=== PATIENT | female | born 1975 | race Caucasian/White ===

== ENCOUNTER 2017-06-15 21:39 | Emergency (ER) | payer OTHER ==
[~2017-06-15] VITALS: Ht 165.1 cm; Wt 68.0 kg
[~2017-06-15 21:39] MED LIST: ATIVAN0.5 MG; AZITHROMYCIN 2250 MG PO; BACTRIM 400-801 EACH; BACTRIM DS TAB1 EACH PO; BACTROBAN15 GM TP; BUTALB-APAP-CA1 EACH PO; CIPRO250 M1 PO; CIPRO500 M1 PO; CIPRO500 MG PO; CIPROFLOXACIN500 M1 PO; CIPROFLOXACIN500 M3 PO; CITALOPRAM; DEPAKOTE500 MG PO; DIFLUCAN150 MG PO; DIFLUCAN50 MG; DOXYCYCLINE 10100 MG PO; FAMCYCLOVIR 50500 M1 PO; FLAGYL500 M1 PO; FLAGYL500 MG PO; FLEXERIL PO; FLOMAX0.4 MG PO; HYDROCODON-ACE1 EACH PO; HYDROCODONE-AP1 EAC6 PO; IBUPROFEN 800800 M1 PO; IBUPROFEN 800800 MG PO; INDOMETHACIN 2525 MG PO; KEFLEX500 MG PO; MACROBID 100 M100 M2 PO; MEDROLDOSEPACK PO; METROGEL-VAGINA70 GM VG; MONISTAT 745 GM VG; Magic Mouthwash PO; NAPROSYN500 MG PO; NOHOMEMEDICATIONS; NORCO 5-325 TA1 EACH PO; ONDANSETRON HCL4 M2 PO; PHENAZOPYRIDIN200 M2 PO; PROVERA10 MG PO; PYRIDIUM200 M1 PO; PYRIDIUM200 MG PO; REGLAN 10 MG TA10 MG PO; SEE COMMENTS; SILVADENE20 GM TP; TORADOL 10 MG T10 MG PO; TRAMADOL 50 MG50 MG PO; ULTRAM 50MG TAB50 MG PO; ZOFRAN4 MG PO
[2017-06-15 22:14] LABS: INFLUENZA A ANTIGEN None Detected (None Detect); INFLUENZA B ANTIGEN None Detected (None Detect)
[2017-06-15] MEDS ORDERED: OSELB75 PO (22:25)
[2017-06-15] MEDS ORDERED: BENZONATATE200 MG PO (22:26)
[2017-06-15 22:31] VITALS: BP 122/63
== END 2017-06-15 22:32 | disposition home or self-care (01) ==
LOC: M.ERS 21:39
PROVIDERS: Nurse Practitioner
DX: J11.1 Influenza due to unidentified influenza virus with other respiratory manifestations (principal); F17.210 Nicotine dependence, cigarettes, uncomplicated; Z88.0 Allergy status to penicillin

== ENCOUNTER 2017-08-17 18:41 | Emergency (ER) | payer OTHER ==
[~2017-08-17] VITALS: Ht 165.1 cm; Wt 65.8 kg
[~2017-08-17 18:41] MED LIST changes: +BENZONATATE200 MG PO; +OSELB75 PO
[2017-08-17 19:26] LABS: URINE BILIRUBIN NEGATIVE (Negative); URINE BLOOD 1+ (Negative); URINE CLARITY CLEAR; URINE COLOR YELLOW; URINE GLUCOSE-RANDOM NEGATIVE (Negative); URINE KETONES NEGATIVE (Negative); URINE LEUKOCYTES-REFLEX NEGATIVE (Negative); URINE NITRITE-REFLEX NEGATIVE (Negative); URINE PROTEIN NEGATIVE (Negative); URINE SPECIFIC GRAVITY >= 1.030 (1.005-1.030); URINE UROBILINOGEN 0.2 E.U./dl (0.2-1.0)
[2017-08-17 19:39] LABS: CASTS None Seen /LPF (None Seen); CRYSTALS None Seen /LPF (None Seen); MUCUS 0-3 Light strn/LPF (None Seen); SQUAMOUS >10 Many /LPF (0-3)
[2017-08-17 19:40] LABS: BACTERIA-REFLEX 1-9 Few /HPF (None Seen); URINE RBC 0-2 Rare /HPF (0-2); URINE WBC-REFLEX 0-5 Rare /HPF (0-5)
[2017-08-17 19:57] VITALS: BP 103/48
== END 2017-08-17 20:00 | disposition home or self-care (01) ==
LOC: M.ERS 18:41
PROVIDERS: Physician Assistant
DX: N89.8 Other specified noninflammatory disorders of vagina (principal); G43.909 Migraine, unspecified, not intractable, without status migrainosus; F17.210 Nicotine dependence, cigarettes, uncomplicated; Z98.890 Other specified postprocedural states; Z87.442 Personal history of urinary calculi; Z88.0 Allergy status to penicillin

== ENCOUNTER 2017-10-18 21:18 | Emergency (ER) | payer OTHER ==
[~2017-10-18] VITALS: Ht 165.1 cm; Wt 65.8 kg
[2017-10-18] MEDS ORDERED: NOHOMEMEDICATIONS (21:30)
[2017-10-18 21:39] LABS: URINE BILIRUBIN NEGATIVE (Negative); URINE BLOOD 3+ (Negative); URINE CLARITY CLEAR; URINE COLOR YELLOW; URINE GLUCOSE-RANDOM NEGATIVE (Negative); URINE KETONES TRACE (Negative); URINE LEUKOCYTES-REFLEX NEGATIVE (Negative); URINE NITRITE-REFLEX NEGATIVE (Negative); URINE PROTEIN NEGATIVE (Negative); URINE SPECIFIC GRAVITY >= 1.030 (1.005-1.030); URINE UROBILINOGEN 0.2 E.U./dl (0.2-1.0)
[2017-10-18 21:56] LABS: SQUAMOUS >10 Many /LPF (0-3)
[2017-10-18 21:57] LABS: BACTERIA-REFLEX 1-9 Few /HPF (None Seen); CASTS None Seen /LPF (None Seen); CRYSTALS None Seen /LPF (None Seen); URINE RBC 3-10 Few /HPF (0-2); URINE WBC-REFLEX 0-5 Rare /HPF (0-5)
[2017-10-18 22:58] VITALS: BP 110/66
== END 2017-10-18 22:58 | disposition home or self-care (01) ==
LOC: M.ERS 21:18
PROVIDERS: Emergency Medicine
DX: Z20.2 Contact with and (suspected) exposure to infections with a predominantly sexual mode of transmission (principal); G43.909 Migraine, unspecified, not intractable, without status migrainosus; F17.210 Nicotine dependence, cigarettes, uncomplicated; Z88.0 Allergy status to penicillin

== ENCOUNTER 2017-12-29 19:37 | Emergency (ER) | payer OTHER ==
[~2017-12-29] VITALS: Ht 165.1 cm; Wt 65.8 kg
[2017-12-29 19:43] VITALS: BP 118/57
[2017-12-29] MEDS ORDERED: ACYCLOVIR 400400 MG PO (19:55)
[2017-12-29] MEDS ORDERED: BACTROBAN CREAM30 G1 TOP (19:55)
== END 2017-12-29 20:17 | disposition home or self-care (01) ==
LOC: M.ERS 19:37
DX: L30.9 Dermatitis, unspecified (principal); G43.909 Migraine, unspecified, not intractable, without status migrainosus; F17.210 Nicotine dependence, cigarettes, uncomplicated; Z88.0 Allergy status to penicillin; Z87.442 Personal history of urinary calculi; Z98.890 Other specified postprocedural states

== ENCOUNTER 2018-06-05 11:37 | Emergency (ER) | payer OTHER ==
[~2018-06-05] VITALS: Ht 165.1 cm; Wt 65.8 kg
[~2018-06-05 11:37] MED LIST changes: +ACYCLOVIR 400400 MG PO; +BACTROBAN CREAM30 G1 TOP
[2018-06-05 12:10] LABS: ABSOLUTE BASOPHILS 0.1 thou/uL (0.0-0.2); ABSOLUTE EOSINOPHILS 0.3 thou/uL (0.0-0.7); ABSOLUTE LYMPHOCYTES 1.9 thou/uL (0.8-5.3); ABSOLUTE MONOCYTES 0.8 thou/uL (0.0-1.2); ABSOLUTE NEUTROPHILS 6.3 thou/uL (1.6-8.1); BASOPHILS 0.7 %; EOSINOPHILS 2.8 %; HEMATOCRIT 37.5 % (37.0-47.0); HEMOGLOBIN 12.4 gm/dL (12.0-15.0); LYMPHOCYTES 20.8 %; MCH 30.1 pg (26.0-34.0); MCHC 32.9 g/dL (28.0-37.0); MCV 91.5 fL (80.0-100.0); MONOCYTES 8.2 %; MPV 7.8 fl. (7.2-11.1); NUCLEATED RBCS 0 /100WBC; PLATELET COUNT* 349 thou/uL (150-400); POLYS 67.5 %; RDW-CV 14.6 % (10.5-14.5); WBC 9.3 thou/uL (4.0-11.0)
[2018-06-05 12:13] LABS: URINE BILIRUBIN NEGATIVE (Negative); URINE BLOOD 3+ (Negative); URINE CLARITY CLEAR; URINE COLOR RED; URINE GLUCOSE-RANDOM NEGATIVE (Negative); URINE KETONES NEGATIVE (Negative); URINE LEUKOCYTES-REFLEX NEGATIVE (Negative); URINE NITRITE-REFLEX NEGATIVE (Negative); URINE PROTEIN 1+ (Negative); URINE SPECIFIC GRAVITY 1.015 (1.005-1.030); URINE UROBILINOGEN 0.2 E.U./dl (0.2-1.0)
[2018-06-05 12:16] LABS: BACTERIA-REFLEX 1-9 Few /HPF (None Seen); CASTS None Seen /LPF (None Seen); CRYSTALS None Seen /LPF (None Seen); MUCUS 0-3 Light strn/LPF (None Seen); SQUAMOUS 0-3 Few /LPF (0-3); URINE RBC >20 Many /HPF (0-2); URINE WBC-REFLEX 0-5 Rare /HPF (0-5)
[2018-06-05 12:17] LABS: CALCIUM 8.3 mg/dL (8.5-10.1); CREATININE 0.8 mg/dL (0.6-1.3)
[2018-06-05 12:21] LABS: ALBUMIN 3.2 g/dL (3.4-5.0); TOTAL BILIRUBIN 0.3 mg/dL (<0.1-1.0); TOTAL PROTEIN 6.6 g/dL (6.4-8.2)
[2018-06-05 14:52] VITALS: BP 107/43
== END 2018-06-05 14:52 | disposition home or self-care (01) ==
LOC: M.ERS 11:37
PROVIDERS: Physician Assistant
DX: N93.8 Other specified abnormal uterine and vaginal bleeding (principal); G43.909 Migraine, unspecified, not intractable, without status migrainosus; Z98.890 Other specified postprocedural states; F17.210 Nicotine dependence, cigarettes, uncomplicated; Z88.0 Allergy status to penicillin

== ENCOUNTER 2019-04-19 14:47 | Emergency (ER) | payer OTHER ==
[~2019-04-19] VITALS: Ht 165.1 cm; Wt 72.6 kg
[2019-04-19] MEDS ORDERED: MEDROLDOSEPACK PO (17:03)
[2019-04-19] MEDS ORDERED: TRAMADOL 50 MG50 MG PO (17:03)
[2019-04-19 17:11] VITALS: BP 110/66
== END 2019-04-19 17:14 | disposition home or self-care (01) ==
LOC: M.ERS 14:47
DX: S30.0XXA Contusion of lower back and pelvis, initial encounter (principal); G43.909 Migraine, unspecified, not intractable, without status migrainosus; F17.210 Nicotine dependence, cigarettes, uncomplicated; Z88.0 Allergy status to penicillin; Z98.51 Tubal ligation status; Z87.442 Personal history of urinary calculi; W18.39XA Other fall on same level, initial encounter; Y93.89 Activity, other specified; Y92.89 Other specified places as the place of occurrence of the external cause; Y99.8 Other external cause status

== ENCOUNTER 2019-06-03 14:54 | Emergency (ER) | payer OTHER ==
[~2019-06-03] VITALS: Ht 165.1 cm; Wt 68.0 kg
[2019-06-03 15:47] LABS: INFLUENZA A ANTIGEN Negative (Negative); INFLUENZA B ANTIGEN Negative (Negative)
[2019-06-03] MEDS ORDERED: TESSALON PERLE100 MG PO (15:52)
[2019-06-03] MEDS ORDERED: ZPAK PO (15:52)
[2019-06-03] MEDS ORDERED: MEDROLDOSEPACK PO (15:52)
[2019-06-03] MEDS ORDERED: PROAIR HFA8.5 GM INH (15:52)
[2019-06-03 16:28] VITALS: BP 111/62
--- NOTE | 2019-06-06 13:56 | EKG ---
[place] [address] ELECTROCARDIOGRAM REPORT Name: KHURRAM OKEEFE Room: [facility]#: [id number] Admission: 06/03/19 Attend Phys: Discharge: 06/03/19 Date of : 75 Date of Service: 06/03/19 1521 Report #: [id number] THIS REPORT FOR: cc: Tere Finn Michelle RNP Holkins, John M. MD [facility] ~ THIS REPORT FOR: //name// [facility] ED Test Date: 2019-06-03 Test Time: 15:21:32 Pat Name: KHURRAM OKEEFE Department: Room: Gender: F Clinical Unit Coordinator: : 1975 Requested By: Kelsy Knight Order Number: [id number] MD: Jeremy Branch Measurements Intervals [place] Rate: 67 P: 63 [place]: 156 QRS: 52 QRSD: 91 T: 44 QT: 400 QTc: 423 Interpretive Statements Sinus rhythm Compared to ECG 12/08/2014 14:16:01 No significant changes Electronically Signed On 06-04-2019 16:03:50 [employer]CTOR TRAILER MECHANIC by Jeremy Branch [email or web address] <ELECTRONICALLY SIGNED> By: Jeremy Branch MD, FAC 06/04/19 1603 1521 1521 Jeremy Branch MD, FAC /EPI
== END 2019-06-03 16:29 | disposition home or self-care (01) ==
LOC: M.ERS 14:54
PROVIDERS: Physician Assistant
DX: J20.9 Acute bronchitis, unspecified (principal); G43.909 Migraine, unspecified, not intractable, without status migrainosus; F17.210 Nicotine dependence, cigarettes, uncomplicated; Z87.442 Personal history of urinary calculi; Z98.51 Tubal ligation status; Z98.890 Other specified postprocedural states

== ENCOUNTER 2019-09-25 19:58 | Emergency (ER) | payer OTHER ==
[~2019-09-25] VITALS: Ht 165.1 cm; Wt 72.6 kg
[~2019-09-25 19:58] MED LIST changes: +PROAIR HFA8.5 GM INH; +TESSALON PERLE100 MG PO; +ZPAK PO
[2019-09-25 20:10] LABS: URINE BILIRUBIN NEGATIVE (Negative); URINE BLOOD TRACE (Negative); URINE CLARITY CLEAR; URINE COLOR YELLOW; URINE GLUCOSE-RANDOM NEGATIVE (Negative); URINE KETONES NEGATIVE (Negative); URINE LEUKOCYTES-REFLEX NEGATIVE (Negative); URINE NITRITE-REFLEX NEGATIVE (Negative); URINE PROTEIN NEGATIVE (Negative); URINE SPECIFIC GRAVITY <= 1.005 (1.005-1.030); URINE UROBILINOGEN 0.2 E.U./dl (0.2-1.0)
[2019-09-25 20:45] LABS: ABSOLUTE BASOPHILS 0.1 thou/uL (0.0-0.2); ABSOLUTE EOSINOPHILS 0.8 thou/uL (0.0-0.7); ABSOLUTE MONOCYTES 0.7 thou/uL (0.0-1.2); BASOPHILS 1.3 %; EOSINOPHILS 8.8 %; HEMOGLOBIN 13.6 gm/dL (12.0-15.0); LYMPHOCYTES 23.3 %; MCH 32.1 pg (26.0-34.0); MCV 94.6 fL (80.0-100.0); MONOCYTES 8.5 %; MPV 8.3 fl. (7.2-11.1); NUCLEATED RBCS 0 /100WBC; PLATELET COUNT* 340 thou/uL (150-400); POLYS 58.1 %; RBC 4.23 mil/uL (4.20-5.00); RDW-CV 13.7 % (10.5-14.5); WBC 8.6 thou/uL (4.0-11.0)
[2019-09-25 20:53] LABS: CREATININE 1.1 mg/dL (0.6-1.3); POTASSIUM 3.7 mmol/L (3.5-5.1)
[2019-09-25 20:57] LABS: ALBUMIN 3.6 g/dL (3.4-5.0); TOTAL BILIRUBIN 0.3 mg/dL (<0.1-1.0); TOTAL PROTEIN 7.3 g/dL (6.4-8.2)
[2019-09-25 21:52] LABS: AMP/METHAMP Negative (Negative); BARBITURATES Negative (Negative); BENZODIAZEPINES Negative (Negative); COCAINE Negative (Negative); METHADONE Negative (Negative); OPIATES Negative (Negative); PCP Negative (Negative); THC Negative (Negative)
[2019-09-25] MEDS ORDERED: BUTALB-APAP-CA1 EACH PO (22:06)
[2019-09-25 22:28] VITALS: BP 145/68
== END 2019-09-25 22:29 | disposition home or self-care (01) ==
LOC: M.ERS 19:58
PROVIDERS: Emergency Medicine
DX: G43.909 Migraine, unspecified, not intractable, without status migrainosus (principal); R10.13 Epigastric pain; R10.11 Right upper quadrant pain; F17.210 Nicotine dependence, cigarettes, uncomplicated; Z87.442 Personal history of urinary calculi; Z98.890 Other specified postprocedural states; Z98.51 Tubal ligation status; Z88.0 Allergy status to penicillin

== ENCOUNTER 2020-05-12 03:33 | Emergency (ER) | payer OTHER ==
[~2020-05-12] VITALS: Ht 165.1 cm; Wt 74.8 kg
[2020-05-12] MEDS ORDERED: [UNRECOGNIZED DRUG - REMARK] (03:55)
[2020-05-12 04:09] LABS: URINE BILIRUBIN NEGATIVE (Negative); URINE BLOOD 2+ (Negative); URINE CLARITY CLEAR; URINE COLOR YELLOW; URINE GLUCOSE-RANDOM NEGATIVE (Negative); URINE KETONES NEGATIVE (Negative); URINE LEUKOCYTES-REFLEX NEGATIVE (Negative); URINE NITRITE-REFLEX NEGATIVE (Negative); URINE PROTEIN NEGATIVE (Negative); URINE SPECIFIC GRAVITY >= 1.030 (1.005-1.030); URINE UROBILINOGEN 0.2 E.U./dl (0.2-1.0)
[2020-05-12 04:48] LABS: CASTS None Seen /LPF (None Seen); SQUAMOUS 0-3 Few /LPF (0-3)
[2020-05-12 04:49] LABS: CRYSTALS None Seen /LPF (None Seen); MUCUS 0-3 Light strn/LPF (None Seen); URINE WBC-REFLEX 0-5 Rare /HPF (0-5)
[2020-05-12 05:20] LABS: ABSOLUTE EOSINOPHILS 0.2 thou/uL (0.0-0.7); ABSOLUTE LYMPHOCYTES 1.6 thou/uL (0.8-5.3); ABSOLUTE MONOCYTES 0.6 thou/uL (0.0-1.2); ABSOLUTE NEUTROPHILS 4.8 thou/uL (1.6-8.1); BASOPHILS 0.7 %; EOSINOPHILS 2.6 %; HEMATOCRIT 39.5 % (37.0-47.0); HEMOGLOBIN 13.1 gm/dL (12.0-15.0); LYMPHOCYTES 21.6 %; MCH 30.3 pg (26.0-34.0); MCHC 33.1 g/dL (28.0-37.0); MCV 91.5 fL (80.0-100.0); MONOCYTES 8.9 %; MPV 7.8 fl. (7.2-11.1); NUCLEATED RBCS 0 /100WBC; PLATELET COUNT* 323 thou/uL (150-400); POLYS 66.2 %; RBC 4.32 mil/uL (4.20-5.00); RDW-CV 13.1 % (10.5-14.5); WBC 7.3 thou/uL (4.0-11.0)
[2020-05-12 05:23] LABS: CREATININE 0.9 mg/dL (0.6-1.3); POTASSIUM 3.5 mmol/L (3.5-5.1)
[2020-05-12] MEDS ORDERED: ZOFRAN ODT4 MG PO (06:10)
[2020-05-12] MEDS ORDERED: HYDROCODON-ACE1 EAC8 PO (06:10)
[2020-05-12 06:15] VITALS: BP 130/73
--- NOTE | 2020-05-12 09:23 | EKG ---
[place] [address] ELECTROCARDIOGRAM REPORT Name: KHURRAM OKEEFE Room: [facility]#: [id number] Admission: 05/12/20 Attend Phys: Discharge: 05/12/20 Date of : 75 Date of Service: 05/12/20 0358 Report #: [id number] THIS REPORT FOR: //name// [facility] ED Test Date: 2020-05-12 Test Time: 03:58:50 Pat Name: KHURRAM OKEEFE Department: Room: Gender: F Lead Caregiver: : 1975 Requested By: Charleen Don Order Number: [id number] MD: Jean Carlos Cohn Measurements Intervals [place] Rate: 63 P: 56 [place]: 158 QRS: 55 QRSD: 88 T: 51 QT: 422 QTc: 433 Interpretive Statements Sinus rhythm Compared to ECG 06/03/2019 15:21:32 No significant changes Electronically Signed On 05-12-2020 9:23:15 MANUFACTURING SUPERVIS[employer] 2ND SHIFT by Jean Carlos Cohn [email or web address] <ELECTRONICALLY SIGNED> By: Jean Carlos Cohn MD, [facility] 05/12/20 09 0358 0358 Jean Carlos Cohn MD, [facility] /EPI
[2020-05-13] MEDS ORDERED: FLEXERIL PO (07:51)
== END 2020-05-12 06:15 | disposition home or self-care (01) ==
LOC: M.ERS 03:33
PROVIDERS: Emergency Medicine
DX: N20.0 Calculus of kidney (principal); G43.909 Migraine, unspecified, not intractable, without status migrainosus; F17.210 Nicotine dependence, cigarettes, uncomplicated; Z79.899 Other long term (current) drug therapy; Z88.0 Allergy status to penicillin

== ENCOUNTER 2020-05-12 19:05 | Emergency (ER) | payer OTHER ==
[~2020-05-12] VITALS: Ht 165.1 cm; Wt 74.8 kg
[~2020-05-12 19:05] MED LIST changes: +HYDROCODON-ACE1 EAC8 PO; +ZOFRAN ODT4 MG PO; +[UNRECOGNIZED DRUG - REMARK]
[2020-05-12 19:08] VITALS: BP 116/71
[2020-05-13] MEDS ORDERED: FLEXERIL PO (07:51)
== END 2020-05-12 19:56 | disposition left against medical advice (07) ==
LOC: M.ERS 19:05
DX: R10.9 Unspecified abdominal pain (principal); Z53.21 Procedure and treatment not carried out due to patient leaving prior to being seen by health care provider

== ENCOUNTER 2020-05-13 06:54 | Emergency (ER) | payer OTHER ==
[~2020-05-13] VITALS: Ht 165.1 cm; Wt 74.8 kg
[2020-05-13] MEDS ORDERED: FLEXERIL PO (07:51)
[2020-05-13 08:04] VITALS: BP 111/63
== END 2020-05-13 08:05 | disposition home or self-care (01) ==
LOC: M.ERS 06:54
DX: M54.9 Dorsalgia, unspecified (principal); G43.909 Migraine, unspecified, not intractable, without status migrainosus; F17.210 Nicotine dependence, cigarettes, uncomplicated; Z79.899 Other long term (current) drug therapy; Z88.0 Allergy status to penicillin

== ENCOUNTER 2021-02-09 04:25 | Emergency (ER) | payer OTHER ==
[~2021-02-09] VITALS: Ht 165.1 cm; Wt 74.8 kg
[2021-02-09] MEDS ORDERED: COMPAZINE10 M2 PO (05:43)
[2021-02-09 06:05] VITALS: BP 100/54
== END 2021-02-09 06:05 | disposition home or self-care (01) ==
LOC: M.ERS 04:25
DX: G43.909 Migraine, unspecified, not intractable, without status migrainosus (principal); F17.210 Nicotine dependence, cigarettes, uncomplicated; Z98.890 Other specified postprocedural states; Z87.442 Personal history of urinary calculi; Z98.51 Tubal ligation status; Z88.0 Allergy status to penicillin; Z79.899 Other long term (current) drug therapy